=== PATIENT | female | born 1970 | race Caucasian/White ===

== ENCOUNTER 2021-03-22 18:18 | Emergency (ER) | payer MEDICAID ==
[~2021-03-22] VITALS: Ht 157.5 cm; Wt 54.0 kg
[2021-03-22 19:07] LABS: COLOR,URINE YELLOW (Yellow); GLUCOSE, URINE NEGATIVE (Neg); KETONES,URINE 15 mg/dl (Neg); LEUKOCYTE ESTERASE ,URINE NEGATIVE (Neg); NITRITES, URINE NEGATIVE (Neg); OCCULT BLOOD,URINE NEGATIVE (Neg); PROTEIN,URINE >=300 mg/dl (Neg); UROBILINOGEN,URINE 0.2 E.U/dL (0.2-1.0)
[2021-03-22 19:12] LABS: BASOPHILS # (AUTO) 0.1 X10'3 (0-0.2); BASOPHILS % (AUTO) 0.3 % (0-1); EOSINOPHILS % (AUTO) 0 % (0-6); HEMATOCRIT 42.9 % (35.0-45.0); HEMOGLOBIN 15.1 g/dl (12.0-16.0); LYMPHOCYTES # (AUTO) 3.2 X10'3 (1.1-4.8); LYMPHOCYTES % (AUTO) 17.1 % (21-51); MEAN CORPUSCULAR HEMOGLOBIN 34.1 PG (27.0-31.0); MEAN CORPUSCULAR HGB CONC 35.2 g/dL (33.0-36.5); MEAN CORPUSCULAR VOLUME 96.8 FL (78-98); MEAN PLATELET VOLUME 9.5 FL (7.4-10.4); MONOCYTES # (AUTO) 0.9 X10'3 (0-0.9); MONOCYTES % (AUTO) 4.7 % (2-12); NEUTROPHILS # (AUTO) 14.5 X10'3 (1.8-7.7); NEUTROPHILS % (AUTO) 77.9 % (42-75); PLATELET COUNT 271 X10'3 (140-440); RED BLOOD COUNT 4.44 X10'6 (4.20-5.60); RED CELL DISTRIBUTION WIDTH 12.4 % (11.5-14.5); WHITE BLOOD COUNT 18.6 X10'3 (4.5-11.0)
[2021-03-22 19:15] LABS: UA COLLECTION TYPE CLN CATCH MIDSTREAM
[2021-03-22 19:16] LABS: CLARITY,URINE SLIGHTLY CLOUDY (Clear)
[2021-03-22 19:18] LABS: BACTERIA,URINE FEW /HPF (Neg); RBC,URINE 0-2 /HPF (0-2); SQUAMOUS EPITHELIAL CELL,UR MODERATE /LPF (FEW)
[2021-03-22 19:19] LABS: TRIPLE PHOSPHATE CRYST 1+ /HPF (NEGATIVE)
[2021-03-22 19:20] LABS: ALANINE AMINOTRANSFERASE 40 U/L (12-78); ALBUMIN 4.2 G/DL (3.4-5.0); ALKALINE PHOSPHATASE 73 IU/L (46-116); ANION GAP 14 (8-16); ASPARTATE AMINO TRANSFERASE 35 U/L (10-37); BILIRUBIN,TOTAL 0.6 MG/DL (0.1-1.0); BLOOD UREA NITROGEN 23 MG/DL (7-18); BUN/CREATININE RATIO 12.6 (6.6-38.0); CHLORIDE 100 MMOL/L (99-107); CREATININE 1.83 MG/DL (0.40-0.90); GLUCOSE 90 MG/DL (70-104); POTASSIUM 4.1 MMOL/L (3.5-5.1); SODIUM 138 MMOL/L (135-145); TOTAL CARBON DIOXIDE 23.8 MMOL/L (24-32); TOTAL PROTEIN 8.4 G/DL (6.4-8.2); eGFR 29 ML/MIN
[2021-03-22 19:20] LABS: URINE AMPHETAMINE SCREEN NEGATIVE (Neg); URINE BARBITUATE SCREEN NEGATIVE (Neg); URINE BENZODIAZEPINES SCREEN NEGATIVE (Neg); URINE CANNABINOID SCREEN POSITIVE (Neg); URINE COCAINE SCREEN NEGATIVE (Neg); URINE METHADONE SCREEN NEGATIVE (Neg); URINE OPIATE SCREEN NEGATIVE (Neg); URINE PHENCYCLIDINE SCREEN NEGATIVE (Neg)
--- NOTE | 2021-03-22 19:41 | NUR ---
Atarax 25mg was given PO for anxiety, along with a Nicotine lozenge 2mg PO. Patient is medication compliant.
--- NOTE | 2021-03-22 19:47 | NUR ---
PT sitting in the hallway waiting for covid swab results. Pt has twice gotten out of her chair and headed to the ambulance bay doors. Security responded to first elopement attempt and sitter stopped second attempt.
--- NOTE | 2021-03-22 21:32 | NUR ---
Pt arrived on floor at 20:00 abulatory. Undressed and into hospital scrubs. Given snack. Pt pleasant and cooperative. Pt answered no to all medical Hx questions, seems likely she is a poor historian and just wants to be left alone. Laying in bed with eyes closed at this time.
--- NOTE | 2021-03-22 21:52 | NUR ---
it support technician here pt cooperative with chest xray. Pt randomly yells at times appears to be reponding to internal stimuli. Pt denies any auditory or visual hallucinations. Pt denies any home medications. Declines to take any medications for sleep or agitation.
[2021-03-22] MEDS ORDERED: LORazepam 2 mg/ml vial IM ONE (22:10)
[2021-03-22] MEDS ORDERED: haloperidol lactate 5mg/ml inj IM ONE (22:10)
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
[2021-03-23] MEDS ORDERED: CefTRIAXone 1000mg IM Kit (w/lidocaine diluent) IM ONE (01:10)
--- NOTE | 2021-03-23 01:40 | NUR ---
Pt taken in her bed to CT by technical communicator and security. Pt returned to unit asleep in bed. Per technical communicator she was reasonably cooperative with CT.
--- NOTE | 2021-03-23 05:48 | NUR ---
Pt sleeping woke up for VS cooperative went back to sleep
--- NOTE | 2021-03-23 07:01 | NUR ---
pt sleeping quietly
--- NOTE | 2021-03-23 08:11 | NUR ---
packet sent to [facility]
--- NOTE | 2021-03-23 08:12 | NUR ---
lab here drawing blood
--- NOTE | 2021-03-23 18:45 | NUR ---
Patient is awake, she adjust her own bed and immediately returns to sleep.
[2021-03-23] MEDS ORDERED: hydrOXYzine 25 MG tablet PO ONE (19:15)
[2021-03-23] MEDS ORDERED: NICOTINE POLACRILEX 4 MG LOZENGE BC PRN (19:15)
--- NOTE | 2021-03-23 19:15 | NUR ---
Patient awakens to voice. She denies S/I, H/I, or any hallucinations. She states she is anxious, she expresses a need for tobacco. This writer producer spoke with NIURKA Craig. Nicotine Lozenges and Atarax will be ordered for PRN use.
[2021-03-23] MEDS ORDERED: NICOTINE POLACRILEX 2 MG LOZENGE BC PRN (19:18)
--- NOTE | 2021-03-23 23:12 | NUR ---
Patient is sleeping quietly. No distress. In view from nurses station.
[2021-03-23 23:59] LABS: HCG SERUM QL NEGATIVE
[2021-03-24 00:02] LABS: ETHANOL < 0.010 GM/DL (0.0-0.010)
--- NOTE | 2021-03-24 01:45 | NUR ---
Patient sleeps quietly. Low fowlers position in bed, patientis sleeping on her right side.
--- NOTE | 2021-03-24 01:48 | NUR ---
Patients HCG test was negative. Her ETOH test was negative for alcohol.
--- NOTE | 2021-03-24 02:58 | NUR ---
Nurse to Nurse report given to nurse Kerri at [facility] in [place]. Patient is being considered for possible admit.
--- NOTE | 2021-03-24 03:00 | NUR ---
Patient is up to void. She ambulates without problem.
[2021-03-24 04:38] VITALS: BP 111/72
--- NOTE | 2021-03-24 04:49 | NUR ---
Patient sleeps quietly on her left side.
--- NOTE | 2021-03-24 06:37 | NUR ---
Patient sleeping on right side. No distress observed. Continue to monitor
--- NOTE | 2021-03-24 08:34 | NUR ---
Patient is eating breakfast. No distress observed. Continue to monitor.
--- NOTE | 2021-03-24 09:02 | NUR ---
Patient walked to curtain looking out to exit. RN asked patient to step away. Patient then got some hand electric stove installer and said she will move when she is done. RN was making this patient's bed at the time and stood and watched patient until she moved away from the curtian. Patient walked to RN and said she could make her own bed. Patient calm and went back to bed when finished. Continue to monitor.
--- NOTE | 2021-03-24 10:55 | NUR ---
Patient sleeping supine. No distress observed. Continue to monitor.
--- NOTE | 2021-03-24 12:55 | NUR ---
Patient ambulatory, steady gait to BR. No distress observed. Continue to monitor.
--- NOTE | 2021-03-24 13:40 | NUR ---
Patient eating lunch. No distress observed. Continue to monitor.
--- NOTE | 2021-03-24 14:40 | NUR ---
Patient's clothes were documented but nowhere to be found. Patient had hoodie, underwear, pants, boots and a shirt. RN gave patient some tennis shoes (from [facility]), sweat pants and shirt and a light jacket for patient. Patient appeared content and got dressed in the new clothes.
== END 2021-03-24 14:42 ==
LOC: ER 18:19
DX: F29 Unspecified psychosis not due to a substance or known physiological condition (principal); Z20.822 Contact with and (suspected) exposure to COVID-19; R41.82 Altered mental status, unspecified; R45.1 Restlessness and agitation
CPT/HCPCS: 36415; 71045; 80053; 80305; 80320; 81001; 83605; 84145; 84443; 84703; 85025; 87635; 96372; 99285; C9803; J0696; J1630; J2060; Q0177

== ENCOUNTER 2021-04-20 10:45 | Emergency (ER) | payer MEDICAID ==
[~2021-04-20] VITALS: Ht 157.5 cm; Wt 50.0 kg
[2021-04-20 10:47] VITALS: BP 119/81
== END 2021-04-20 20:35 | disposition left against medical advice (07) ==
LOC: ER 10:46
DX: M25.561 Pain in right knee (principal); M25.562 Pain in left knee; M25.571 Pain in right ankle and joints of right foot; M25.572 Pain in left ankle and joints of left foot; Z53.21 Procedure and treatment not carried out due to patient leaving prior to being seen by health care provider

== ENCOUNTER 2021-04-20 20:58 | Emergency (ER) | payer MEDICAID ==
[2021-04-22] MEDS ORDERED: NO HOME MEDS (07:58)
== END 2021-04-21 02:42 | disposition left against medical advice (07) ==
LOC: ER 21:00
DX: M25.579 Pain in unspecified ankle and joints of unspecified foot (principal); Z53.21 Procedure and treatment not carried out due to patient leaving prior to being seen by health care provider

== ENCOUNTER 2021-04-21 20:06 | Emergency (ER) | payer MEDICAID ==
[~2021-04-21] VITALS: Ht 157.5 cm; Wt 49.5 kg
[2021-04-22 00:06] LABS: BASOPHILS # (AUTO) 0.1 X10'3 (0-0.2); BASOPHILS % (AUTO) 0.6 % (0-1); EOSINOPHILS # (AUTO) 0.2 X10'3 (0-0.9); EOSINOPHILS % (AUTO) 1.6 % (0-6); HEMATOCRIT 44.6 % (35.0-45.0); HEMOGLOBIN 15.1 g/dl (12.0-16.0); LYMPHOCYTES # (AUTO) 3.4 X10'3 (1.1-4.8); LYMPHOCYTES % (AUTO) 31.3 % (21-51); MEAN CORPUSCULAR HEMOGLOBIN 33.8 PG (27.0-31.0); MEAN CORPUSCULAR VOLUME 99.4 FL (78-98); MEAN PLATELET VOLUME 8.5 FL (7.4-10.4); MONOCYTES % (AUTO) 9.3 % (2-12); NEUTROPHILS # (AUTO) 6.2 X10'3 (1.8-7.7); NEUTROPHILS % (AUTO) 57.2 % (42-75); PLATELET COUNT 259 X10'3 (140-440); RED BLOOD COUNT 4.48 X10'6 (4.20-5.60); RED CELL DISTRIBUTION WIDTH 12.8 % (11.5-14.5); WHITE BLOOD COUNT 10.8 X10'3 (4.5-11.0)
[2021-04-22 00:14] LABS: ALANINE AMINOTRANSFERASE 34 U/L (12-78); ALKALINE PHOSPHATASE 77 IU/L (46-116); ANION GAP 6 (8-16); ASPARTATE AMINO TRANSFERASE 23 U/L (10-37); BILIRUBIN,TOTAL 0.3 MG/DL (0.1-1.0); BLOOD UREA NITROGEN 24 MG/DL (7-18); BUN/CREATININE RATIO 21.2 (6.6-38.0); CALCIUM 10.2 MG/DL (8.5-10.1); CHLORIDE 104 MMOL/L (99-107); CREATININE 1.13 MG/DL (0.40-0.90); GLUCOSE 96 MG/DL (70-104); POTASSIUM 4.3 MMOL/L (3.5-5.1); SODIUM 140 MMOL/L (135-145); TOTAL CARBON DIOXIDE 30.1 MMOL/L (24-32); TOTAL PROTEIN 7.9 G/DL (6.4-8.2); eGFR 51 ML/MIN
[2021-04-22 00:17] LABS: ETHANOL < 0.010 GM/DL (0.0-0.010)
--- NOTE | 2021-04-22 03:08 | NUR ---
pt was found sleeping in the lobby, had been called to room earlier with no response. will room pt as soon as bed is available
--- NOTE | 2021-04-22 04:23 | NUR ---
During intial assessment, patients chief complaint was blisters on feet and "brain feeling scrambled". Denies SI/HI.
[2021-04-22 07:49] LABS: URINE HCG NEGATIVE (NEG)
[2021-04-22] MEDS ORDERED: NO HOME MEDS (07:58)
[2021-04-22 08:05] LABS: URINE AMPHETAMINE SCREEN NEGATIVE (Neg); URINE BARBITUATE SCREEN NEGATIVE (Neg); URINE BENZODIAZEPINES SCREEN NEGATIVE (Neg); URINE CANNABINOID SCREEN POSITIVE (Neg); URINE COCAINE SCREEN NEGATIVE (Neg); URINE METHADONE SCREEN NEGATIVE (Neg); URINE OPIATE SCREEN NEGATIVE (Neg); URINE PHENCYCLIDINE SCREEN NEGATIVE (Neg)
[2021-04-22 10:09] LABS: ETHANOL < 0.010 GM/DL (0.0-0.010)
--- NOTE | 2021-04-22 14:41 | NUR ---
breaking primary RN for lunch erick called to evaluate patients current/past medical condition and will be presenting to [facility] for possible [facility] admission primary rn briseida aware
[2021-04-22 16:32] LABS: CLARITY,URINE CLOUDY (Clear); COLOR,URINE YELLOW (Yellow); GLUCOSE, URINE NEGATIVE (Neg); KETONES,URINE NEGATIVE (Neg); LEUKOCYTE ESTERASE ,URINE TRACE (Neg); NITRITES, URINE NEGATIVE (Neg); OCCULT BLOOD,URINE NEGATIVE (Neg); PH,URINE 7.5 (4.8-8.0); PROTEIN,URINE 100 mg/dl (Neg); UROBILINOGEN,URINE 0.2 E.U/dL (0.2-1.0)
[2021-04-22 16:40] LABS: UA COLLECTION TYPE CLN CATCH MIDSTREAM
[2021-04-22 16:41] LABS: BACTERIA,URINE 4+ /HPF (Neg); MUCUS STRANDS FEW /LPF (Neg); RBC,URINE NONE SEEN /HPF (0-2); SQUAMOUS EPITHELIAL CELL,UR MODERATE /LPF (FEW); TRIPLE PHOSPHATE CRYST 1+ /HPF (NEGATIVE)
[2021-04-22 16:42] LABS: WBC CLUMPS,URINE FEW /HPF (NEGATIVE); WBC,URINE 30-50 /HPF (0-4)
--- NOTE | 2021-04-22 18:16 | NUR ---
Received report from FRANK La. Patient sitting up in bed having dinner, in no apparent distress. In RN's view. Will continue to monitor.
[2021-04-22] MEDS: cephalexin 500mg capsule PO SCH (19:39)
--- NOTE | 2021-04-22 19:45 | NUR ---
Patient asked for ice water and warm blanket; given
--- NOTE | 2021-04-22 20:55 | NUR ---
Patient up to bathroom
--- NOTE | 2021-04-22 22:20 | NUR ---
Patient resting comfortably on left side with 16 even and unlabored respirations; in no apparent distress.
--- NOTE | 2021-04-22 23:52 | NUR ---
Patient appears to be sleeping on her left side. No s/sx of distress.
--- NOTE | 2021-04-23 02:12 | NUR ---
Patient appears to be sleeping. No signs of distress.
--- NOTE | 2021-04-23 02:51 | NUR ---
Patient up to use the restroom, then back to bed. Denies needs.
--- NOTE | 2021-04-23 04:02 | NUR ---
Patient sleeping supine. Resp. rate even and unlabored. No signs of distress.
--- NOTE | 2021-04-23 05:47 | NUR ---
Patient continues to sleep. No distress noted.
--- NOTE | 2021-04-23 06:10 | NUR ---
Patient sleeping supine. No distress observed. Continue to monitor.
[2021-04-23 06:19] VITALS: BP 109/74
--- NOTE | 2021-04-23 08:10 | NUR ---
Patient eating breakfast. No distress observed. Continue to monitor.
[2021-04-23] MEDS: cephalexin 500mg capsule PO SCH (08:21)
--- NOTE | 2021-04-23 10:03 | NUR ---
Patient sleeping supine. No distress observed. Continue to monitor.
--- NOTE | 2021-04-23 12:01 | NUR ---
Patient sleeping on right side. No distress observed. Continue to monitor.
--- NOTE | 2021-04-23 12:12 | NUR ---
Patient sitting up and eating lunch. No distress observed. Continue to monitor.
--- NOTE | 2021-04-23 14:00 | NUR ---
Patient calm and getting dressed ready to go to [facility]. No distress observed. Continue to monitor.
== END 2021-04-23 14:03 ==
LOC: ER 20:07
DX: S90.822A Blister (nonthermal), left foot, initial encounter (principal); S90.821A Blister (nonthermal), right foot, initial encounter; R44.0 Auditory hallucinations; R45.851 Suicidal ideations; M25.562 Pain in left knee; Z59.00 Homelessness unspecified; Z56.0 Unemployment, unspecified; Z20.822 Contact with and (suspected) exposure to COVID-19; X58.XXXA Exposure to other specified factors, initial encounter; Y93.89 Activity, other specified; Y92.89 Other specified places as the place of occurrence of the external cause; Y99.8 Other external cause status
CPT/HCPCS: 36415; 80053; 80305; 80320; 81001; 81025; 84443; 85025; 87635; 99285; C9803